=== PATIENT | male | born 1950 | race Caucasian/White ===

== ENCOUNTER 2016-10-12 12:23 | Outpatient (CLI) | payer MEDICARE | END 2016-10-12 12:24 | disposition home or self-care (01) | DX: Z79.899 Other long term (current) drug therapy (principal); E78.00 Pure hypercholesterolemia, unspecified; E11.59 Type 2 diabetes mellitus with other circulatory complications ==

== ENCOUNTER 2018-01-04 08:00 | Outpatient (CLI) | payer MEDICARE ==
[2018-01-04 12:52] LABS: BASOPHILS # (AUTO) 0.1 10^3/uL (0.0-0.1); BASOPHILS % (AUTO) 0.8 %; EOSINOPHILS # (AUTO) 0.2 10^3/uL (0.0-0.7); EOSINOPHILS % (AUTO) 1.8 %; HGB - HEMOGLOBIN 18.6 g/dL (14.0-18.0); LYMPHOCYTES # (AUTO) 3.3 10^3/uL (1.5-3.5); MEAN CORPUSCULAR HEMOGLOBIN 33.1 pg (27.0-31.0); MEAN CORPUSCULAR HGB CONC 34.8 g/dL (32.0-36.0); MEAN CORPUSCULAR VOLUME 95.2 fL (80.0-94.0); MEAN PLATELET VOLUME 8.9 fL (7.4-11.4); MONOCYTES # (AUTO) 0.8 10^3/uL (0.0-1.0); MONOCYTES % (AUTO) 8.6 %; NEUTROPHILS # (AUTO) 4.6 10^3/uL (1.5-6.6); NEUTROPHILS % (AUTO) 51.8 %; PLT - PLATELET COUNT 182 10^3/uL (130-450); RED CELL DISTRIBUTION WIDTH 13.2 % (12.0-15.0); WHITE BLOOD COUNT 8.8 x10^3/uL (4.8-10.8)
[2018-01-04 13:07] LABS: ALBUMIN 4.3 g/dL (3.2-5.5); ALBUMIN/GLOBULIN RATIO 1.3 (1.0-2.2); ALKALINE PHOSPHATASE 58 IU/L (42-121); ALT ALANINE AMINOTRANSFERASE 49 IU/L (10-60); AST ASPARTATE AMINOTRANSFERASE 38 IU/L (10-42); BILIRUBIN,TOTAL 0.8 mg/dL (0.2-1.0); BUN - BLOOD UREA NITROGEN 21 mg/dL (6-20); CALCIUM 9.6 mg/dL (8.5-10.3); CARBON DIOXIDE - CO2 31 mmol/L (21-32); CHLORIDE 94 mmol/L (101-111); CHOL/HDL RATIO 6.7 (<5.0); CHOLESTEROL 200 mg/dL; GFR - MDRD 75 (>89); GLUCOSE 247 mg/dL (70-100); HDL CHOLESTEROL 30 mg/dL; SODIUM 135 mmol/L (135-145); TOTAL PROTEIN 7.7 g/dL (6.7-8.2)
[2018-01-04 13:50] LABS: HB2 TOTAL 20.5 g/dL; HEMOGLOBIN A1C 2.15 g/dL; HEMOGLOBIN A1C % 11.7 % (4.6-6.2)
[2018-01-04 14:18] LABS: LDL CHOLESTEROL,DIRECT 92 mg/dL; LDLD/HDL RATIO 3.1 (<3.6)
== END 2018-01-04 08:01 ==
LOC: LAB.WCP 08:00
PROVIDERS: ATTEND Family Medicine
DX: I10 Essential (primary) hypertension (principal); E11.9 Type 2 diabetes mellitus without complications; I49.9 Cardiac arrhythmia, unspecified; Z12.5 Encounter for screening for malignant neoplasm of prostate
CPT/HCPCS: 36415; 80053; 80061; 82043; 83036; 83721; 84443; 85025; G0103; 84153

== ENCOUNTER 2018-03-21 08:00 | Outpatient (CLI) | payer MEDICARE ==
[2018-03-21 19:06] LABS: HB2 TOTAL 20.3 g/dL; HEMOGLOBIN A1C 1.45 g/dL; HEMOGLOBIN A1C % 8.7 % (4.6-6.2)
[2018-03-21 19:12] LABS: ALBUMIN 4.5 g/dL (3.2-5.5); ALBUMIN/GLOBULIN RATIO 1.3 (1.0-2.2); BILIRUBIN,TOTAL 1.2 mg/dL (0.2-1.0); CALCIUM 9.8 mg/dL (8.5-10.3); CREATININE 1.1 mg/dL (0.6-1.2)
== END 2018-03-21 08:01 | disposition home or self-care (01) ==
LOC: LAB.WCP 08:00
PROVIDERS: ATTEND Family Medicine
DX: E11.65 Type 2 diabetes mellitus with hyperglycemia (principal)
CPT/HCPCS: 36415; 80053; 83036

== ENCOUNTER 2018-06-21 08:00 | Outpatient (CLI) | payer MEDICARE ==
[2018-06-21 13:48] LABS: ALBUMIN 4.1 g/dL (3.2-5.5); ALBUMIN/GLOBULIN RATIO 1.4 (1.0-2.2); BILIRUBIN,TOTAL 0.7 mg/dL (0.2-1.0); CALCIUM 9.4 mg/dL (8.5-10.3); CREATININE 1.1 mg/dL (0.6-1.2); TOTAL PROTEIN 7.1 g/dL (6.7-8.2)
[2018-06-21 14:00] LABS: HB2 TOTAL 17.3 g/dL; HEMOGLOBIN A1C 0.85 g/dL; HEMOGLOBIN A1C % 6.6 % (4.6-6.2)
== END 2018-06-21 08:01 | disposition home or self-care (01) ==
LOC: LAB.WCP 08:00
PROVIDERS: ATTEND Family Medicine
DX: E11.65 Type 2 diabetes mellitus with hyperglycemia (principal)
CPT/HCPCS: 36415; 80053; 83036

== ENCOUNTER 2018-10-31 08:00 | Outpatient (CLI) | payer MEDICARE ==
[2018-10-31 13:27] LABS: ALBUMIN 4.3 g/dL (3.2-5.5); ALBUMIN/GLOBULIN RATIO 1.3 (1.0-2.2); CALCIUM 9.9 mg/dL (8.5-10.3); CREATININE 1.2 mg/dL (0.6-1.2); TOTAL PROTEIN 7.7 g/dL (6.7-8.2)
[2018-10-31 14:39] LABS: HEMOGLOBIN A1C 1.29 g/dL; HEMOGLOBIN A1C % 8.4 % (4.6-6.2)
== END 2018-10-31 23:59 | disposition home or self-care (01) ==
LOC: LAB.WCP 08:00
PROVIDERS: ATTEND Family Medicine
DX: I10 Essential (primary) hypertension (principal); E11.40 Type 2 diabetes mellitus with diabetic neuropathy, unspecified
CPT/HCPCS: 36415; 80053; 83036

== ENCOUNTER 2018-11-02 08:20 | Outpatient (CLI) | payer MEDICARE | END 2018-11-02 08:21 | disposition critical access hospital (66) | LOC: EMS 08:20 | PROVIDERS: ATTEND Surgery | DX: R07.9 Chest pain, unspecified (principal) | CPT/HCPCS: A0425; A0427 ==

== ENCOUNTER 2018-11-02 08:40 | Emergency (ER) | payer MEDICARE ==
--- NOTE | 2018-11-02 08:56 | ED Physician Documentation ---
PD HPI CHEST PAIN - Stated complaint Stated Complaint: CHEST PX - Chief complaint Chief Complaint: Cardiac - History obtained from History obtained from: Patient - History of Present Illness Timing - onset: Enter time (629), Today Timing - onset during: Light activity Timing - duration: Minutes Timing - details: Abrupt onset, Now resolved Quality: Pressure Location: Substernal Radiation: Back Improved by: Rest Worsened by: Exertion Associated symptoms: Diaphoresis, Nausea Similar symptoms before: Has not had sx before Recently seen: Not recently seen - Additional information Additional information: 68-year-old male with a history of diabetes and congestive heart failure has developed some chest pain this morning after drinking a cup of coffee. He states that he has had this previously and usually take some antacids and this goes away. His pain has now resolved and he did have this pain after getting ready to go to a prayer meeting. He was able to go to the prior meeting and during the time he was there he was noted to look a bit pale and he states he did not feel well in general felt a little dizzy and lightheaded. He was convinced to go to the doctor following prayer meeting and he went into see his doctor who promptly had him transferred to the hospital by ambulance. The patient arrived to the hospital with a heart rate of 110. He is not having symptoms of chest pain at this time or dizziness. He reports sugars running high recently. Review of Systems Constitutional: denies: Fever, Chills, Myalgias Eyes: denies: Decreased vision Ears: denies: Loss of hearing, Ear pain Nose: denies: Rhinorrhea / runny nose, Congestion Throat: denies: Sore throat Cardiac: reports: Chest pain / pressure. denies: Palpitations, Pedal edema, Calf pain Respiratory: denies: Dyspnea, Cough GI: denies: Abdominal Pain, Nausea, Vomiting, Constipation, Diarrhea : denies: Dysuria, Frequency Skin: denies: Rash Musculoskeletal: denies: Neck pain, Back pain, Extremity pain Neurologic: reports: Other (dizziness and lightheadedness). denies: Generalized weakness, Focal weakness, Numbness PD PAST MEDICAL HISTORY - Past Medical History Cardiovascular: PA Respiratory: COPD GI: None HEENT: None Derm: Other (History of MRSA skin infection) - Past Surgical History Past Surgical History: Yes General: Appendectomy - Present Medications Home Medications: Ambulatory Orders Medication Instructions Recorded Confirmed Albuterol Sulf [Ventolin Hfa 1 - 2 puffs INH Q4HR PRN 11/02/18 11/02/18 Inhaler] Amlodipine Besylate 10 mg PO DAILY 11/02/18 11/02/18 Aspirin 81 mg PO DAILY 11/02/18 11/02/18 Clopidogrel [Plavix] 75 mg PO DAILY 11/02/18 11/02/18 Furosemide [Lasix] 20 mg PO DAILY 11/02/18 11/02/18 Glipizide [Glipizide Xl] 5 mg PO BID 11/02/18 11/02/18 Insulin NPH Hum/Reg Insulin Hm 0 unit SUBQ BID 11/02/18 11/02/18 [Novolin 70-30 100 Unit/ml Vial] Lisinopril 20 mg PO BID 11/02/18 11/02/18 Lovastatin 40 mg PO DAILY 11/02/18 11/02/18 Metformin HCl [Metformin ER 500 mg PO BID 11/02/18 11/02/18 Osmotic] Metoprolol Tartrate 50 mg PO BID 11/02/18 11/02/18 Nystatin 15 gm TP DAILY 11/02/18 11/02/18 Tiotropium [place] [Spiriva] 18 mcg IH DAILY 11/02/18 11/02/18 hydroCHLOROthiazide 25 mg PO DAILY 11/02/18 11/02/18 [Hydrochlorothiazide] - Allergies Allergies/Adverse Reactions: Allergies Allergy/AdvReac Type Severity Reaction Status Date / Time bertholletia excelsa ([place] Allergy Anaphylaxis Verified 11/02/18 09:02 nut) - Social History Does the pt smoke?: Yes Smoking Status: Current every day smoker Does the pt drink ETOH?: Yes Does the pt have substance abuse?: No - Immunizations Immunizations are current?: Yes - POLST Patient has POLST: No PD ED PE NORMAL - Vitals Vital signs reviewed: Yes (hypertensive ) - General General: Alert and oriented X 3, No acute distress, Well developed/nourished - HEENT HEENT: Atraumatic, PERRL, EOMI, Other (dry mucous membranes ) - Neck Neck: Supple, no meningeal sign, No bony TTP - Cardiac Cardiac: No murmur, Other (tachy to 110 with distant heart sounds ) - Respiratory Respiratory: No respiratory distress, Clear bilaterally - Abdomen Abdomen: Soft, Non tender - Back Back: No CVA TTP, No spinal TTP - Derm Derm: Normal color, Warm and dry, No rash - Extremities Extremities: No deformity, No edema - Neuro Neuro: Alert and oriented X 3, mannequin maker 2-12 intact, No motor deficit, No sensory deficit, Normal speech Eye Opening: Spontaneous Motor: Obeys Commands Verbal: Oriented GCS Score: 15 - Psych Psych: Normal mood, Normal affect Results - Vitals Vitals: Vital Signs - 24 hr 11/02/18 11/02/18 08:43 11:28 Temperature 36.2 C L Heart Rate 95 79 Respiratory 22 16 Rate Blood Pressure 139/86 H 135/75 H O2 Saturation 93 99 Oxygen O2 Source Room air - EKG (time done) 9843 Rate: Rate (enter#) (93) Rhythm: NSR Ischemia: Q waves Compare to prior EKG: Unchanged from prior EKG (SPT 10-08-2013 no sig change) Computer interpretation: Agree with computer - Labs Labs: Laboratory Tests 11/02/18 11/02/18 11/02/18 09:49 09:49 09:49 WBC 8.2 RBC 4.84 Hgb 16.0 Hct 45.7 MCV 94.5 H MCH 33.1 H MCHC 35.0 RDW 13.3 Plt Count 168 MPV 7.8 Neut # (Auto) 5.2 Lymph # (Auto) 2.1 [place] # (Auto) 0.6 Eos # (Auto) 0.1 Baso # (Auto) 0.1 Absolute Nucleated RBC 0.01 Nucleated RBC % 0.1 Sodium 134 L Potassium 3.9 Chloride 97 L Carbon Dioxide 26 Anion Gap 11.0 BUN 30 H Creatinine 1.1 Estimated GFR (MDRD) 67 L Glucose 244 H Calcium 9.5 Total Bilirubin 0.8 AST 33 ALT 44 Alkaline Phosphatase 50 Troponin I < 0.04 Total Protein 7.5 Albumin 4.2 Globulin 3.3 Albumin/Globulin Ratio 1.3 Lipase 83 H Urine Color Urine Clarity Urine pH Ur Specific [place] Urine Protein Urine Glucose (UA) Urine Ketones Urine Occult Blood Urine Nitrite Urine Bilirubin Urine Urobilinogen Ur Leukocyte Esterase Ur Microscopic Review Urine Culture Comments 11/02/18 11:20 WBC RBC Hgb Hct MCV MCH MCHC RDW Plt Count MPV Neut # (Auto) Lymph # (Auto) [place] # (Auto) Eos # (Auto) Baso # (Auto) Absolute Nucleated RBC Nucleated RBC % Sodium Potassium Chloride Carbon Dioxide Anion Gap BUN Creatinine Estimated GFR (MDRD) Glucose Calcium Total Bilirubin AST ALT Alkaline Phosphatase Troponin I Total Protein Albumin Globulin Albumin/Globulin Ratio Lipase Urine Color YELLOW Urine Clarity CLEAR Urine pH 5.0 Ur Specific [place] >=1.030 H Urine Protein NEGATIVE Urine Glucose (UA) 250 H Urine Ketones NEGATIVE Urine Occult Blood NEGATIVE Urine Nitrite NEGATIVE Urine Bilirubin NEGATIVE Urine Urobilinogen 0.2 (NORMAL) Ur Leukocyte Esterase NEGATIVE Ur Microscopic Review NOT INDICATED Urine Culture Comments NOT INDICATED - Rads (name of study) 2 view chest Radiology: Prelim report reviewed (Impression: Normal single view chest), EMP read indepedently (looks like a dry chest), See rad report Procedures - IVC sono (time) 0933 Bedside IVC sono: IVC measures (cm) (0.79 difficult to image as this is a fleeting vessle.), IVC collapsed c insp (cm) (complete), Dehydration (est 2 liter deficit.) PD MEDICAL DECISION MAKING - ED course Complexity details: considered differential, d/w patient ED course: 68-year-old male with history of diabetes appears significantly dehydrated on interrogation of the inferior vena cava and IV saline is begun. He does have a history of congestive heart failure and he is on 2 diuretics and his blood sugars have been running high. I suspect he is significantly dry and this is led to his symptoms. Departure - Departure Disposition: 01 Home, Self Care Clinical Impression: Dehydration Condition: Stable Instructions: ED Dehydration Follow-Up: Kemar Eldridge MD [Primary Care Provider] - Comments: Today you are dehydrated and you are on 2 different diuretics and my recommendation is to skip these diuretics today and restart them again tomorrow.
[2018-11-02] MEDS ORDERED: SODIUM CHLORIDE 0.9% 1,000 ML IV ONE (09:38)
--- NOTE | 2018-11-02 09:54 | XRAY Report ---
Reason: chest pain Procedure Date: 11/02/2018 Accession Number: [id number] / [id number] Procedure: XR - Chest 1 View X-Ray CPT Code: 58377 FULL RESULT: EXAM: CHEST RADIOGRAPHY EXAM DATE: 11/02/2018 09:46 AM. CLINICAL HISTORY: Chest pain. COMPARISON: CHEST 2 VIEW PA/LAT 10/08/2013 12:47 AM. TECHNIQUE: 1 view. FINDINGS: Lungs/Pleura: No focal opacities evident. No pleural effusion. No pneumothorax. Mediastinum: Within exam limitations, the cardiomediastinal contour is normal. Other: None. IMPRESSION: Normal single view chest. RADIA
[2018-11-02 09:57] LABS: BASOPHILS # (AUTO) 0.1 10^3/uL (0.0-0.1); BASOPHILS % (AUTO) 0.9 %; EOSINOPHILS # (AUTO) 0.1 10^3/uL (0.0-0.7); EOSINOPHILS % (AUTO) 1.8 %; LYMPHOCYTES # (AUTO) 2.1 10^3/uL (1.5-3.5); LYMPHOCYTES % (AUTO) 26.3 %; MEAN CORPUSCULAR HEMOGLOBIN 33.1 pg (27.0-31.0); MEAN CORPUSCULAR VOLUME 94.5 fL (80.0-94.0); MEAN PLATELET VOLUME 7.8 fL (7.4-11.4); MONOCYTES # (AUTO) 0.6 10^3/uL (0.0-1.0); MONOCYTES % (AUTO) 7.4 %; NEUTROPHILS # (AUTO) 5.2 10^3/uL (1.5-6.6); NEUTROPHILS % (AUTO) 63.6 %; PLT - PLATELET COUNT 168 10^3/uL (130-450); RED BLOOD COUNT 4.84 10^6/uL (4.70-6.10); RED CELL DISTRIBUTION WIDTH 13.3 % (12.0-15.0); WHITE BLOOD COUNT 8.2 x10^3/uL (4.8-10.8)
[2018-11-02 10:12] LABS: ALBUMIN 4.2 g/dL (3.2-5.5); ALBUMIN/GLOBULIN RATIO 1.3 (1.0-2.2); BILIRUBIN,TOTAL 0.8 mg/dL (0.2-1.0); CALCIUM 9.5 mg/dL (8.5-10.3); CREATININE 1.1 mg/dL (0.6-1.2); TOTAL PROTEIN 7.5 g/dL (6.7-8.2)
[2018-11-02 11:28] LABS: BILIRUBIN,URINE NEGATIVE (NEGATIVE); GLUCOSE, URINE (UA) 250 mg/dL (NEGATIVE); KETONES,URINE (UA) NEGATIVE (NEGATIVE); LEUKOCYTE ESTERASE, URINE NEGATIVE (NEGATIVE); NITRITE,URINE NEGATIVE (NEGATIVE); OCCULT BLOOD,URINE NEGATIVE (NEGATIVE); PROTEIN,URINE NEGATIVE (NEGATIVE); UROBILINOGEN,URINE 0.2 (NORMAL) E.U./dL (NORMAL)
[2018-11-02 11:31] LABS: CLARITY,URINE CLEAR (CLEAR)
[2018-11-02 12:33] VITALS: BP 141/68
== END 2018-11-02 12:34 | disposition home or self-care (01) ==
LOC: EDUNIT# → ED 08:40
DX: E86.0 Dehydration (principal); E11.9 Type 2 diabetes mellitus without complications; Z79.84 Long term (current) use of oral hypoglycemic drugs; I25.2 Old myocardial infarction; R94.31 Abnormal electrocardiogram [ECG] [EKG]
CPT/HCPCS: 36415; 71045; 80053; 81001; 81003; 83690; 84484; 85025; 87086; 93005; 96360; 96361; 99284

== ENCOUNTER 2018-11-10 06:07 | Outpatient (CLI) | payer MEDICARE ==
[2018-11-10] MEDS ORDERED: IOVERSOL 320 100 ML VIAL IVP ONE ×2 (06:19→07:46)
[2018-11-10] MEDS ORDERED: IOVERSOL 320 50 ML VIAL ONE (06:20)
[2018-11-10] MEDS ORDERED: IOVERSOL 320 50 ML VIAL PO ONE (07:46)
--- NOTE | 2018-11-10 11:31 | CT Report ---
Reason: DYSPHAGIA Procedure Date: 11/10/2018 Accession Number: [id number] / [id number] Procedure: CT - Abdomen/Pelvis W/ CPT Code: FULL RESULT: EXAM: CT ABDOMEN AND PELVIS EXAM DATE: 11/10/2018 07:24 AM. CLINICAL HISTORY: Dysphagia. COMPARISONS: None. TECHNIQUE: Routine helical CT imaging was performed through the abdomen and pelvis. IV contrast: Opti 320 100 mL. Enteric contrast: Yes. Reconstructions: Coronal and sagittal. In accordance with CT protocol optimization, one or more of the following dose reduction techniques were utilized for this exam: automated exposure control, adjustment of mA and/or KV based on patient size, or use of iterative reconstructive technique. FINDINGS: Lung Bases: Unremarkable. Liver: Mildly diminished in attenuation consistent with steatosis. No focal lesions appreciated. Hepatic and portal veins are patent. Gallbladder/Bile Ducts: Unremarkable. Spleen: Normal. Pancreas: Normal. Adrenal Glands: Normal. Kidneys: Right kidney: There is an exophytic 14 mm high attenuation thin-walled cyst with possible internal septation lower pole, reference image 42 series 3. A similar-appearing 13 mm cyst wholly enclosed in the cortex posterior lower pole, reference series 3 image 38. No stones or hydronephrosis. Left kidney: Water density thin-walled cysts of the upper and lateral midpole. 9 mm partially exophytic cyst possibly with enhancing internal septation lateral mid lobe pole reference image 38 series 3. No stones or hydronephrosis. Peritoneal Cavity/Bowel: Normal. No free fluid, free air or adenopathy. No masses or acute inflammatory process. The appendix is not definitively identified. Stomach appears normal. No hiatal hernia. Pelvic Organs: Normal. The bladder and visualized pelvic organs are within normal limits. Vasculature: Focal fusiform aneurysmal dilatation of the infrarenal abdominal aorta at 3.5 cm. Bones: No significant abnormality. Other: Broad-based mild diastases of the right lateral abdominal wall below the umbilicus. IMPRESSION: 1. Bilateral lower pole complex renal cysts/cystic lesions as described, at least meeting criteria of Bosniak II-F designation. Recommend imaging surveillance with follow-up dedicated pre-and postcontrast CT in 6 months to assess stability. 2. A 3.5 cm focal fusiform aneurysm of the infrarenal aorta. 3. Mild hepatic steatosis. 4. No specific imaging findings to explain symptoms of dysphagia. RADIA
== END 2018-11-10 06:08 | disposition home or self-care (01) ==
LOC: DI 06:07
PROVIDERS: ATTEND Family Medicine
DX: R13.10 Dysphagia, unspecified (principal); Q61.02 Congenital multiple renal cysts; I71.4 Abdominal aortic aneurysm, without rupture; K76.0 Fatty (change of) liver, not elsewhere classified
CPT/HCPCS: 74177; Q9967

== ENCOUNTER 2019-02-02 08:00 | Outpatient (CLI) | payer MEDICARE ==
[2019-02-02 12:41] LABS: HB2 TOTAL 17.4 g/dL; HEMOGLOBIN A1C 1.27 g/dL; HEMOGLOBIN A1C % 8.8 % (4.6-6.2)
[2019-02-02 12:47] LABS: ALBUMIN 4.1 g/dL (3.2-5.5); ALBUMIN/GLOBULIN RATIO 1.3 (1.0-2.2); BILIRUBIN,TOTAL 0.8 mg/dL (0.2-1.0); CALCIUM 9.5 mg/dL (8.5-10.3); CREATININE 1.4 mg/dL (0.6-1.2); TOTAL PROTEIN 7.3 g/dL (6.7-8.2)
[2019-02-02 12:50] LABS: CREATININE,URINE 135.5 mg/dL; MICROALBUM/CREATININE RATIO,UR 29.5 ug/mg (<30.0)
== END 2019-02-02 23:59 | disposition home or self-care (01) ==
LOC: LAB.WCP 08:00
PROVIDERS: ATTEND Family Medicine
DX: E11.9 Type 2 diabetes mellitus without complications (principal); R10.13 Epigastric pain; R13.10 Dysphagia, unspecified
CPT/HCPCS: 36415; 80053; 82043; 82570; 83036

== ENCOUNTER 2019-05-03 08:05 | Outpatient (CLI) | payer MEDICARE ==
[2019-05-03 13:18] LABS: CALCIUM 9.9 mg/dL (8.5-10.3); CREATININE 1.3 mg/dL (0.6-1.2)
[2019-05-03 13:21] LABS: HB2 TOTAL 17.9 g/dL; HEMOGLOBIN A1C 1.59 g/dL; HEMOGLOBIN A1C % 10.3 % (4.6-6.2)
== END 2019-05-03 23:59 | disposition home or self-care (01) ==
LOC: LAB.WCP 08:05
PROVIDERS: ATTEND Family Medicine
DX: I12.9 Hypertensive chronic kidney disease with stage 1 through stage 4 chronic kidney disease, or unspecified chronic kidney disease (principal); E11.22 Type 2 diabetes mellitus with diabetic chronic kidney disease; N18.9 Chronic kidney disease, unspecified; E11.40 Type 2 diabetes mellitus with diabetic neuropathy, unspecified
CPT/HCPCS: 36415; 80048; 82043; 83036

== ENCOUNTER 2019-09-13 07:52 | Outpatient (CLI) | payer MEDICARE, MEDICAID ==
[2019-09-13 13:26] LABS: CREATININE 1.6 mg/dL (0.6-1.2)
[2019-09-13 13:31] LABS: CREATININE,URINE 272.3 mg/dL; MICROALBUM/CREATININE RATIO,UR 16.2 ug/mg (<30.0); MICROALBUMIN,URINE 4.4 mg/dL (0-300.0)
[2019-09-13 13:49] LABS: HB2 TOTAL 17.8 g/dL; HEMOGLOBIN A1C 1.22 g/dL; HEMOGLOBIN A1C % 8.4 % (4.6-6.2)
== END 2019-09-13 23:59 | disposition home or self-care (01) ==
LOC: LAB.WCP 07:52
PROVIDERS: ATTEND Family Medicine
DX: E11.9 Type 2 diabetes mellitus without complications (principal); R10.31 Right lower quadrant pain; I10 Essential (primary) hypertension
CPT/HCPCS: 36415; 80048; 82043; 82570; 83036

== ENCOUNTER 2019-12-13 08:00 | Outpatient (CLI) | payer MEDICARE, MEDICAID ==
[2019-12-13 12:23] LABS: CALCIUM 9.5 mg/dL (8.5-10.3)
[2019-12-13 12:31] LABS: HB2 TOTAL 18.3 g/dL; HEMOGLOBIN A1C 0.79 g/dL; HEMOGLOBIN A1C % 6.1 % (4.6-6.2)
[2019-12-13 12:49] LABS: CREATININE,URINE 151.4 mg/dL; MICROALBUM/CREATININE RATIO,UR 40.3 ug/mg (<30.0); MICROALBUMIN,URINE 6.1 mg/dL (0-300.0)
== END 2019-12-13 23:59 | disposition home or self-care (01) ==
LOC: LAB.WCP 08:00
PROVIDERS: ATTEND Family Medicine
DX: I12.9 Hypertensive chronic kidney disease with stage 1 through stage 4 chronic kidney disease, or unspecified chronic kidney disease (principal); E11.22 Type 2 diabetes mellitus with diabetic chronic kidney disease; N18.9 Chronic kidney disease, unspecified; E66.9 Obesity, unspecified
CPT/HCPCS: 36415; 80048; 82043; 82570; 83036

== ENCOUNTER → 2020-08-07 | Outpatient (CLI) | payer MEDICARE, MEDICAID ==
[2020-08-07 12:10] LABS: BASOPHILS # (AUTO) 0.1 10^3/uL (0.0-0.1); BASOPHILS % (AUTO) 0.7 %; EOSINOPHILS # (AUTO) 0.1 10^3/uL (0.0-0.7); EOSINOPHILS % (AUTO) 0.8 %; LYMPHOCYTES # (AUTO) 2.2 10^3/uL (1.5-3.5); MEAN CORPUSCULAR HEMOGLOBIN 32.4 pg (27.0-31.0); MEAN CORPUSCULAR HGB CONC 33.6 g/dL (32.0-36.0); MEAN CORPUSCULAR VOLUME 96.2 fL (80.0-94.0); MEAN PLATELET VOLUME 11.3 fL (7.4-11.4); MONOCYTES # (AUTO) 0.8 10^3/uL (0.0-1.0); MONOCYTES % (AUTO) 8.6 %; NEUTROPHILS # (AUTO) 6.1 10^3/uL (1.5-6.6); NEUTROPHILS % (AUTO) 65.6 %; PLT - PLATELET COUNT 178 10^3/uL (130-450); RED BLOOD COUNT 5.56 10^6/uL (4.70-6.10); RED CELL DISTRIBUTION WIDTH 13.5 % (12.0-15.0); WHITE BLOOD COUNT 9.2 x10^3/uL (4.8-10.8)
[2020-08-07 12:12] LABS: ALBUMIN 4.5 g/dL (3.2-5.5); ALBUMIN/GLOBULIN RATIO 1.2 (1.0-2.2); ALKALINE PHOSPHATASE 70 IU/L (42-121); ALT ALANINE AMINOTRANSFERASE 15 IU/L (10-60); AST ASPARTATE AMINOTRANSFERASE 17 IU/L (10-42); BILIRUBIN,TOTAL 1.6 mg/dL (0.2-1.0); BUN - BLOOD UREA NITROGEN 20 mg/dL (6-20); CARBON DIOXIDE - CO2 25 mmol/L (21-32); CHLORIDE 102 mmol/L (101-111); CHOL/HDL RATIO 7.4 (<5.0); CHOLESTEROL 238 mg/dL; CREATININE 1.2 mg/dL (0.6-1.2); GLUCOSE 127 mg/dL (70-100); HDL CHOLESTEROL 32 mg/dL; LDL CHOLESTEROL,CALCULATED 179 mg/dL; LDL/HDL RATIO 5.6 (<3.6); SODIUM 140 mmol/L (135-145); TOTAL PROTEIN 8.2 g/dL (6.7-8.2); VLDL CHOLESTEROL 27 mg/dL
[2020-08-07 12:59] LABS: HEMOGLOBIN A1c% 5.9 % (4.27-6.07)
[2020-08-07 13:34] LABS: MICROALBUMIN,URINE 218.3 mg/dL (0-300.0)
[2020-08-07 13:35] LABS: CREATININE,URINE 564.6 mg/dL; MICROALBUM/CREATININE RATIO,UR 386.6 ug/mg (<30.0)
== END ==
LOC: LAB.WCP 08:00
PROVIDERS: ATTEND Nurse Practitioner Family
DX: E11.22 Type 2 diabetes mellitus with diabetic chronic kidney disease (principal); I13.0 Hypertensive heart and chronic kidney disease with heart failure and stage 1 through stage 4 chronic kidney disease, or unspecified chronic kidney disease; N18.9 Chronic kidney disease, unspecified; I50.9 Heart failure, unspecified; E78.00 Pure hypercholesterolemia, unspecified; Z12.5 Encounter for screening for malignant neoplasm of prostate; G47.9 Sleep disorder, unspecified; F32.9 Major depressive disorder, single episode, unspecified
CPT/HCPCS: 36415; 80053; 80061; 82043; 82570; 83036; 84443; 85025; G0103; 83721; 84153

== ENCOUNTER 2020-10-18 09:42 | Outpatient (CLI) | payer MEDICARE, MEDICAID ==
[2020-10-18] MEDS ORDERED: IOVERSOL 320 100 ML VIAL IVP ONE ×2 (10:08→10:48)
[2020-10-18 10:18] LABS: CALCIUM 9.9 mg/dL (8.5-10.3); CREATININE 1.1 mg/dL (0.6-1.2)
--- NOTE | 2020-10-18 11:10 | CT Report ---
PROCEDURE: ANGIO ABDOMEN/PELVIS W INDICATIONS: AAA, COMPLEX RENAL CYST CONTRAST: IV CONTRAST: Optiray 320 ml: 100 PO CONTRAST: *NO PO CONTRAST TECHNIQUE: After the administration of intravenous contrast, 2 and 5 mm sections acquired from the diaphragm to the iliac crests. 3-dimensional maximum intensity projection (MIP) coronal and sagittal reformats, a nd/or 3-dimensional volume rendering reformatting was then performed. For radiation dose reduction, the following was used: automated exposure control, adjustment of mA and/or kV according to patient size. COMPARISON: 11/10/2018 FINDINGS: Image quality: Excellent. Extravascular tissues: Lung bases are clear. Heart size is normal. Liver and spleen are normal in size and enhancement. Gallbladder wall does not appear thickened. Biliary system is non dilated. Pancreas enhances normally. No adrenal nodules. The kidneys demonstrate normal size. There is a growing hyperdense nodule with likely enhancement socorro suring 55 Hounsfield units along the lateral aspect of the left kidney, as on series 4 image 66 that measures up to 1.8 cm, which previously measured up to 11 mm. Exophytic from the inferior pole of th e right kidney, there is a growing hyperdense nodule within the internal density of 25 Hounsfield uni ts that measures 2 cm, as on series 4 image 67. This has increased in size compared to the prior exam ination, when it measured 14 mm. Several hyperdense cysts are seen elsewhere. There is no hydronephro sis. Non-opacified bowel loops demonstrate normal wall thickness and caliber. No free fluid or air. Diver ticulosis can be seen, without mireya findings of active diverticulitis. No retroperitoneal or mesenteric adenopathy. No suspicious bony abnormalities. No vertebral body compression fractures. Bilateral pars defects a re seen at L5, with mild grade 1 L5 on S1 anterolisthesis. Focal L5-S1 degenerative change is seen. M ilder degenerative changes are seen elsewhere. The L5 level is transitional and partially sacralized , left worse than right. Bilateral fat-containing inguinal hernias are seen. There is a right lower quadrant abdominal wall hernia seen anteriorly, which contains fat and nondila eduarda small bowel. This hernia is slightly increased in size compared to the prior. A mild fat-containi ng periumbilical hernia is also seen. Abdominal aorta: General is calcification can be seen. There is a distal abdominal aortic aneurysm s een that measures 3.6 x 3.9 cm, with moderate mural hematoma. This has mildly increased in size james red to 2019, when it measured up to 3.5 cm. Mesenteric arteries: No metabolically significant stenosis can be seen. Renal arteries: Single renal arteries, without a hemodynamically significant stenosis IMPRESSION: Interval increase in size of the known abdominal aortic aneurysm, now measuring 3.6 x 3. 9 cm distally. Growing hyperdense nodules are seen involving each kidney, with suspicion for a growing neoplasms. Ho wever, differential diagnosis includes growing complex/hyperdense cysts. For further evaluation, a re nal mass protocol CT is now recommended. Incidental note is made of: Fat-containing periumbilical hernia Growing right lower quadrant abdominal wall hernia Bilateral fat-containing inguinal hernias Bilateral L5 pars defects, with mild grade 1 L5-S1 anterolisthesis Focal L5-S1 degenerative change Transitional lumbar anatomy, with a partially sacralized L5 level Diverticulosis can be seen, without mireya findings of active diverticulitis. Reviewed by: Rico Coyle MD on 10/18/2020 10:08 AM [facility] Approved by: Rico Coyle MD on 10/18/2020 10:08 AM [facility] Station ID: [id number]
== END 2020-10-18 09:43 | disposition home or self-care (01) ==
LOC: LAB 09:42
PROVIDERS: ATTEND Internal Medicine
DX: N28.1 Cyst of kidney, acquired (principal); I71.4 Abdominal aortic aneurysm, without rupture
CPT/HCPCS: 36415; 74174; 80048; Q9967

== ENCOUNTER 2020-12-08 10:40 | Outpatient (CLI) | payer MEDICARE, MEDICAID ==
[2020-12-08 18:51] LABS: BUN - BLOOD UREA NITROGEN 32 mg/dL (6-20); CALCIUM 10.1 mg/dL (8.5-10.3); CARBON DIOXIDE - CO2 29 mmol/L (21-32); CHLORIDE 98 mmol/L (101-111); CHOL/HDL RATIO 6.1 (<5.0); CHOLESTEROL 245 mg/dL; CREATININE 1.3 mg/dL (0.6-1.2); GFR - MDRD 55 (>89); GLUCOSE 135 mg/dL (70-100); HDL CHOLESTEROL 40 mg/dL; LDL CHOLESTEROL,CALCULATED 175 mg/dL; LDL/HDL RATIO 4.4 (<3.6); POTASSIUM 3.9 mmol/L (3.5-5.0); SODIUM 138 mmol/L (135-145); TRIGLYCERIDES 151 mg/dL; VLDL CHOLESTEROL 30 mg/dL
[2020-12-08 18:58] LABS: CREATININE,URINE 135.5 mg/dL; MICROALBUM/CREATININE RATIO,UR 78.2 ug/mg (<30.0); MICROALBUMIN,URINE 10.6 mg/dL (0-300.0)
[2020-12-08 20:34] LABS: ESTIMATED AVERAGE GLUCOSE 146 mg/dL (70-100); HEMOGLOBIN A1c% 6.7 % (4.27-6.07)
== END 2020-12-08 23:59 | disposition home or self-care (01) ==
LOC: LAB.WCP 10:40
PROVIDERS: ATTEND Internal Medicine
DX: E11.59 Type 2 diabetes mellitus with other circulatory complications (principal)
CPT/HCPCS: 36415; 80048; 80061; 82043; 82570; 83036; 83721

== ENCOUNTER 2020-12-22 12:17 | Outpatient (CLI) | payer MEDICARE, MEDICAID ==
[2020-12-22] MEDS ORDERED: IOVERSOL 320 100 ML VIAL IVP ONE ×3 (12:45→13:28)
--- NOTE | 2020-12-22 17:00 | CT Report ---
PROCEDURE: ABDOMEN W/WO INDICATIONS: COMPLEX RENAL CYST CONTRAST: IV CONTRAST: Optiray 320 ml: 140 PO CONTRAST: *NO PO CONTRAST TECHNIQUE: After the administration of intravenous contrast, 5 mm thick sections acquired from the diaphragm to the symphysis. 5 mm coronal and sagittal reformats were acquired. For radiation dose reduction, the following was used: automated exposure control, adjustment of mA and/or kV according to patient siz e. COMPARISON: CT abdomen pelvis 11/10/2018, CT angiogram abdomen pelvis 10/18/2020 . FINDINGS: Image quality: Excellent. Lung bases: There is mild dependent atelectasis bilaterally. Heart size is normal. Genitourinary: There is an exophytic oval lesion extending laterally from the inferior pole the righ t kidney measuring up to 2.2 x 1.9 cm on series 8 image 45. This demonstrates slightly hyperdense att enuation values without definite internal enhancement. The findings are consistent with a hyperdense cyst. Similarly, within the inferior pole of the left kidney, there is a small exophytic lesion measu ring up to 1.8 x 1.3 cm on series 8 image 40 also demonstrating no definite internal enhancement. Fin dings are also consistent with a hyperdense cyst. A small exophytic simple cyst is also demonstrated in the left kidney measuring up to 2.2 cm on series 8 image 35. A few additional smaller foci are als o demonstrated within the kidneys bilaterally which are too small to characterize but likely represen t cysts. No discrete enhancing solid mass identified. Solid organs: Liver and spleen are normal in size and enhancement. Gallbladder appears within edouard l limits without calcified gallstones. Biliary system is non dilated. Pancreas enhances normally. N o adrenal nodules. Peritoneum and bowel: Visualized bowel loops are normal in caliber and wall thickness. No free fluid or air. Nodes and vessels: No retroperitoneal or mesenteric adenopathy by size criteria. There is mild aneur ysmal dilatation of the infrarenal abdominal aorta measuring up to 3.5 cm in anteroposterior dimensio n which appears similar in size compared to the prior studies. Bones: No suspicious bony lesions. No vertebral body compression fractures. Miscellaneous: No ventral hernias. IMPRESSION: 1. Bilateral hyperdense renal cysts demonstrated likely reflecting hemorrhagic or proteinaceous brandon nt. No solid enhancing renal mass identified. * 2. Abdominal aortic aneurysm appears similar in size of prior studies. Reviewed by: Sin Asher MD on 12/22/2020 4:59 PM PDT Approved by: Sin Asher MD on 12/22/2020 4:59 PM PDT Station ID: [id number]
== END 2020-12-22 12:18 | disposition home or self-care (01) ==
LOC: DI 12:17
PROVIDERS: ATTEND Internal Medicine
DX: N28.1 Cyst of kidney, acquired (principal); I71.4 Abdominal aortic aneurysm, without rupture
CPT/HCPCS: 74170; Q9967

== ENCOUNTER 2021-05-17 21:16 | Outpatient (CLI) | payer MEDICARE, MEDICAID | END 2021-05-17 21:17 | disposition critical access hospital (66) | LOC: EMS 21:16 | DX: I46.9 Cardiac arrest, cause unspecified (principal) | CPT/HCPCS: A0425; A0433 ==

== ENCOUNTER 2021-05-17 21:32 | Emergency (ER) | payer MEDICARE, MEDICAID ==
--- NOTE | 2021-05-17 21:46 | ED Physician Documentation ---
History of Present Illness - Stated complaint Stated Complaint: CPR - Chief complaint Chief Complaint: Critical Care - History obtained from History obtained from: EMS - Additonal information Additional information: 71yM with pmh cad, chf, dm, AAA, bibems in cardiac arrest with witnessed collapse, CPR started by ems 8:45pm with multiple shocks, epi, bicarb, lidocaine, mag, calcium, amiodarone administered, intubated prior to arrival. fingerstick normal in the field. further history limited by patient acuity Review of Systems Unable to obtain: Intubated PD PAST MEDICAL HISTORY - Past Medical History Cardiovascular: MS Respiratory: COPD Neuro: CVA Endocrine/Autoimmune: Type 2 diabetes GI: None HEENT: None Musculoskeletal: Chronic back pain Derm: Other (History of MRSA skin infection) - Past Surgical History Past Surgical History: Yes General: Appendectomy - Present Medications Home Medications: Ambulatory Orders Medication Instructions Recorded Confirmed Albuterol Sulf [Ventolin Hfa 1 - 2 puffs INH Q4HR PRN 11/02/18 11/02/18 Inhaler] Amlodipine Besylate 10 mg PO DAILY 11/02/18 11/02/18 Aspirin 81 mg PO DAILY 11/02/18 11/02/18 Clopidogrel [Plavix] 75 mg PO DAILY 11/02/18 11/02/18 Furosemide [Lasix] 20 mg PO DAILY 11/02/18 11/02/18 Glipizide [Glipizide Xl] 5 mg PO BID 11/02/18 11/02/18 Insulin NPH Hum/Reg Insulin Hm 0 unit SUBQ BID 11/02/18 11/02/18 [Novolin 70-30 100 Unit/ml Vial] Lovastatin 40 mg PO DAILY 11/02/18 11/02/18 Metformin HCl [Metformin ER 500 mg PO BID 11/02/18 11/02/18 Osmotic] Metoprolol Tartrate 50 mg PO BID 11/02/18 11/02/18 Nystatin 15 gm TP DAILY 11/02/18 11/02/18 Tiotropium [place] [Spiriva] 18 mcg IH DAILY 11/02/18 11/02/18 hydroCHLOROthiazide 25 mg PO DAILY 11/02/18 11/02/18 [Hydrochlorothiazide] lisinopriL [Lisinopril] 20 mg PO BID 11/02/18 11/02/18 - Allergies Allergies/Adverse Reactions: Allergies Allergy/AdvReac Type Severity Reaction Status Date / Time [place] nut Allergy Anaphylaxis Verified 11/02/18 09:02 - Social History Does the pt smoke?: Yes Smoking Status: Current every day smoker Does the pt drink ETOH?: Yes Does the pt have substance abuse?: No - Immunizations Immunizations are current?: Yes - POLST Patient has POLST: No PD ED PE NORMAL - Vitals Vital signs reviewed: Yes - General General: Other (intubated, cpr in progress) - HEENT HEENT: Atraumatic, Other (pupils fixed, dilated) - Neck Neck: No bony TTP - Cardiac Cardiac: Other (pulseless, cpr in progress) - Respiratory Respiratory: Other (intubated with 7-0 tube. BL breath sounds, +etCO2) - Abdomen Abdomen: Other (soft, mildly distended) - Derm Derm: Normal color, Warm and dry - Extremities Extremities: No deformity - Neuro Neuro: Other (pulseless, cpr in progress) - Psych Psych: Other (pulseless, cpr in progress) Results - Vitals Vitals: Vital Signs - 24 hr 05/17/21 21:34 Heart Rate 0 L Respiratory 0 L Rate Blood Pressure 0/0 L O2 Saturation 100 Oxygen O2 Source Mechanical ventilator PD MEDICAL DECISION MAKING - ED course ED course: On arrival to ED patient was without shockable rhythm (see code sheet), no meaningful cardiac activity on POCUS, with prolonged down time. TOD called 9:42pm. Suspect MS as etiology given patient extensive cardiac history. - Critical Care Time(min): 30 Time Includes: Direct patient care, Review records, Reassess patient, Document care, Coordinate care Departure - Departure Disposition: 20 Clinical Impression: Cardiac arrest Condition: Critical
[2021-05-17 21:49] VITALS: BP 0/0
== END 2021-05-17 23:46 | disposition expired ==
LOC: EDUNIT# → ED 21:32
DX: I46.9 Cardiac arrest, cause unspecified (principal); I25.10 Atherosclerotic heart disease of native coronary artery without angina pectoris; I25.2 Old myocardial infarction; I50.9 Heart failure, unspecified; E11.9 Type 2 diabetes mellitus without complications; I71.4 Abdominal aortic aneurysm, without rupture; J44.9 Chronic obstructive pulmonary disease, unspecified; F17.200 Nicotine dependence, unspecified, uncomplicated; Z86.73 Personal history of transient ischemic attack (TIA), and cerebral infarction without residual deficits; Z79.82 Long term (current) use of aspirin; Z79.02 Long term (current) use of antithrombotics/antiplatelets; Z79.4 Long term (current) use of insulin
CPT/HCPCS: 99285; 99291